=== PATIENT | male | born 1990 | race Caucasian/White ===

== ENCOUNTER → 2023-06-30 | Outpatient (CLI) | payer BC ==
--- NOTE | 2023-06-30 12:21 | Diagnostic Imaging Report ---
PROCEDURE: US Scrotum. TECHNIQUE: Multiple real-time grayscale images were obtained over the scrotum in various projections bilaterally. INDICATION: Left testicular pain. FINDINGS: The right testicle measures 4.4 x 1.9 x 2.7 cm, and left testicle measures 4.0 x 2.3 x 2.7 cm. Both testes demonstrate blood flow. There is some slight increased blood flow to the left testicle in comparison to the right and slight parenchymal heterogeneity. In addition, there is some hypervascularity to the left epididymis, and features may be owing to epididymo-orchitis on the left side. The right epididymis is unremarkable. There is an approximately 3 mm tunica cyst on the right. Small bilateral hydroceles are noted. There is a questionable small left varicocele. IMPRESSION: Features suggestive of epididymo-orchitis on the left without evidence of discrete testicular mass or vascular compromise. Dictated by: Dictated on workstation # [id number]
== END ==
LOC: RAD 11:39
PROVIDERS: ATTEND Surgery
DX: N50.812 Left testicular pain (principal)
CPT/HCPCS: 76870